=== PATIENT | male | born 1990 | race Caucasian/White ===

== ENCOUNTER 2021-03-09 16:12 | Outpatient (CLI) | payer OTHER | END 2021-03-09 16:13 | disposition home or self-care (01) | LOC: COV 16:12 | PROVIDERS: ATTEND Family Medicine | DX: R50.9 Fever, unspecified (principal); R05 Cough; R09.81 Nasal congestion; J34.89 Other specified disorders of nose and nasal sinuses; Z20.822 Contact with and (suspected) exposure to COVID-19 ==